=== PATIENT | female | born 1945 | race Caucasian/White ===

== ENCOUNTER → 2016-11-09 | Outpatient (CLI) | payer OTHER ==
[~2016-11-09] MED LIST: ALPR-411 PO; ASPEC325 PO; CLB200 PO; CLR10 PO; CRS10 PO; DVN160125 PO; LRT5 PO; NXM/40 PO; OXYSR20 PO; SYN137 PO
== END | disposition home or self-care (01) ==
LOC: C.LABPBG 14:45
PROVIDERS: ATTEND Internal Medicine Geriatric Medicine
DX: F17.200 Nicotine dependence, unspecified, uncomplicated (principal)

== ENCOUNTER → 2017-06-01 | Outpatient (CLI) | payer OTHER ==
[2017-06-06 02:32] LABS: EGG MIX CLASS 0; EGG MIX IGE <0.10 KU/L; PEANUT IGE <0.10 KU/L; TOMATO CLASS 0; TOMATO IGE <0.10 KU/L
== END | disposition home or self-care (01) ==
LOC: C.LAB1850 12:41
PROVIDERS: ATTEND Internal Medicine Pulmonary Disease
DX: Z91.018 Allergy to other foods (principal)

== ENCOUNTER → 2018-05-15 | Outpatient (CLI) | payer OTHER | END | disposition home or self-care (01) | LOC: C.LABPBG 14:44 | PROVIDERS: ATTEND Internal Medicine Geriatric Medicine | DX: R19.5 Other fecal abnormalities (principal) ==